=== PATIENT | female | born 1975 | race African-American/Black ===

== ENCOUNTER 2019-11-16 14:10 | Outpatient (CLI) | payer OTHER, SELFPAY ==
--- NOTE | 2019-11-16 14:16 | ECG_ITS ---
Measurements Intervals [place] Rate: 55 P: 41 RI: 156 QRS: 7 QRSD: 70 T: 15 QT: 418 QTc: 400 Interpretive Statements SINUS BRADYCARDIA DELAYED PRECORDIAL R/S TRANSITION BASELINE ARTIFACT- I, III, AVL, AVF BORDERLINE ECG Electronically Signed On 11-16-2019 14:32:49 CDT by Joseph Mack D.O.
[2019-11-16 15:18] LABS: Blood Urea Nitrogen 15 mg/dL (7-17); Calcium 9.2 mg/dL (8.4-10.2); Carbon Dioxide 29 mmol/L (22-30); Chloride 100 mmol/L (98-107); Estimated Glomerular Filt Rate > 60; Glucose 89 mg/dL (65-105); Potassium 3.7 mmol/L (3.4-5.0); Sodium 138 mmol/L (137-145)
== END 2019-11-16 14:11 | disposition home or self-care (01) ==
LOC: ANHSURGERY 14:14
PROVIDERS: Anesthesiology; Visit Provider Obstetrics & Gynecology
DX: Z01.818 Encounter for other preprocedural examination (principal); Z51.81 Encounter for therapeutic drug level monitoring; I10 Essential (primary) hypertension
CPT/HCPCS: 36415; 80048; 93005

== ENCOUNTER 2019-11-23 01:52 | Outpatient (CLI) | payer OTHER, SELFPAY ==
[2019-11-23 18:39] LABS: SARS-CoV-2 RNA PCR Negative
== END 2019-11-23 01:53 | disposition home or self-care (01) ==
LOC: ANHCOVIDDT 01:53
PROVIDERS: Visit Provider Obstetrics & Gynecology
DX: Z01.812 Encounter for preprocedural laboratory examination (principal); Z11.59 Encounter for screening for other viral diseases
CPT/HCPCS: 87635; C9803; U0003

== ENCOUNTER 2019-11-25 01:46 | Day surgery (SDC) | payer OTHER, SELFPAY ==
[2019-11-15 11:29] VITALS: BMI 29.0
--- NOTE | 2019-11-25 09:33 | PM.HPGS ---
History of Present Illness History of Present Illness Consent: Risks, benefits, and alternatives have been discussed and questions answered. Patient agrees to proceed with procedure. Chief complaint: Abnormal Uterine Bleeding Narrative: Jeanie Brown is a 44 year old female with heavy cycles and failed hormonal therapy. Review of Systems Constitutional: Constitutional: Reports fatigue PMFSH Past Medical History Medical History (Updated 11/25/19 @ 09:37 by Torsten Resendiz MD) Menorrhagia with irregular cycle Surgical History Surgical History (Updated 11/25/19 @ 09:36 by Torsten Resendiz MD) Tubal ligation status Social History Social History Smoking status: Never smoker Spiritual care concerns: No Meds Home Medications and Allergies Home Medications Medication Instructions Recorded Confirmed Type albuterol sulfate [ProAir HFA] 1 - 2 inh INHALATION QID PRN 11/15/19 11/15/19 History ascorbic acid (vitamin C) [Vitamin 500 mg PO DAILY 11/15/19 11/15/19 History C] azelastine 2 spray INTRANASAL BID 11/15/19 11/15/19 History biotin 1,000 mcg PO DAILY 11/15/19 11/15/19 History budesonide-formoterol [Symbicort] 2 puff INHALATION Q12H 11/15/19 11/15/19 History clobetasol 1 applic TOPICAL DIRECTED PRN 11/15/19 11/15/19 History fexofenadine [Mary Allergy] 180 mg PO DAILY 11/15/19 11/15/19 History hydrochlorothiazide 25 mg PO DAILY 11/15/19 11/15/19 History mometasone 1 spray INTRANASAL DAILY 11/15/19 11/15/19 History montelukast 10 mg PO HS 11/15/19 11/15/19 History multivitamin 1 tablet PO DAILY 11/15/19 11/15/19 History Allergies Allergy/AdvReac Type Severity Reaction Status Date / Time azithromycin Allergy Itching Verified 11/15/19 11:30 Exam Const: General: no acute distress Resp: Auscultation: clear to auscultation bilaterally Cardio: Rate: regular rate Rhythm: regular rhythm GI: GI Palp: Yes Soft to palpation : External Female Exam: normal external appearance Assessment and Plan Assessment and plan (1) Menorrhagia with irregular cycle: Code(s): N92.1 - Excessive and frequent menstruation with irregular cycle Status: Acute Assessment and Plan: Scheduled for a hysteroscopy with Daylin ablation. risk and benefits reviewed with patient in detail.
--- NOTE | 2019-11-25 12:15 | WPDANESEPPF ---
Anes - Initial Pre Proc Eval Procedure: Operation Date: 11/25/19 13:30 Proposed Procedures p Hysteroscopy, Dilation and Curettage, Daylin Endometrial Ablation - Torsten Resendiz MD Date/Time: 11/25/19 12:15 Surgeon: Torsten Resendiz MD Pre Op Diagnosis: Abnormal Uterine Bleeding Patient Data Age: 44 Gender: F Height: 5 ft 4 in Weight: 76.66 kg Allergies Allergy/AdvReac Type Severity Reaction Status Date / Time azithromycin Allergy Itching Verified 11/15/19 11:30 Home Medications Medication Instructions Recorded Confirmed Type albuterol sulfate [ProAir HFA] 1 - 2 inh INHALATION QID PRN 11/15/19 11/15/19 History ascorbic acid (vitamin C) [Vitamin 500 mg PO DAILY 11/15/19 11/15/19 History C] azelastine 2 spray INTRANASAL BID 11/15/19 11/15/19 History biotin 1,000 mcg PO DAILY 11/15/19 11/15/19 History budesonide-formoterol [Symbicort] 2 puff INHALATION Q12H 11/15/19 11/15/19 History clobetasol 1 applic TOPICAL DIRECTED PRN 11/15/19 11/15/19 History fexofenadine [Mary Allergy] 180 mg PO DAILY 11/15/19 11/15/19 History hydrochlorothiazide 25 mg PO DAILY 11/15/19 11/15/19 History mometasone 1 spray INTRANASAL DAILY 11/15/19 11/15/19 History montelukast 10 mg PO HS 11/15/19 11/15/19 History multivitamin 1 tablet PO DAILY 11/15/19 11/15/19 History Patient hx anesthesia problems: none Family hx anesthesia problems: none PMFSH Past Medical History Medical History Asthma Hypertension Menorrhagia with irregular cycle ANABELL (obstructive sleep apnea) Surgical History Surgical History Tubal ligation status Social History Social History Smoking status: Never smoker Spiritual care concerns: No Anes - Eval Final PreProcedure Day of Procedure 11/25/19 12:15 Patient weight: overweight Heart: regular rate and rhythm Lungs: clear to auscultation Airway: Mallampati scale class II Neurological: alert and oriented Last oral intake: >/= 8 hours ASA classification: III Emergent: no Anesthetic plan: proceed Anesthesia type and monitoring: general GIVS and standard monitoring Informed Consent: The patient's anesthetic plan and its attendant risks and benefits were discussed with the patient/family/POA. Questions were solicited and answers provided to the satisfaction of the patient/family/POA.
[2019-11-25] MEDS: ACETAMINOPHEN 500 MG TABLET 1000 MG PO (12:17)
[2019-11-25] MEDS: LACTATED RINGERS 1,000 ML 30 ML IV CONT (12:25)
[2019-11-25 12:43] VITALS: BP 130/77; PULSE 54; TEMP 36.4; O2SAT 100
--- NOTE | 2019-11-25 13:54 | SUR.OPER ---
300ml ns in, 300ml ns out
--- NOTE | 2019-11-25 13:58 | PM.OP ---
Procedure Note - Brief Procedure Note - Brief Date of procedure: 11/25/19 Pre-op diagnosis: Abnormal Uterine Bleeding Post-op diagnosis: same Procedure performed: hysteroscopy with yolis ablation Anesthesia: MAC and local Surgeon: Torsten Resendiz MD Estimated blood loss (mL): 10 Drains: No Packing: No Pathology: none sent Complications: None Condition: stable Disposition: observation Findings: normal uterine cavity
[2019-11-25 14:03] VITALS: BP 121/72; PULSE 95; RESP 14; O2SAT 96
[2019-11-25 14:30] VITALS: BP 143/91; PULSE 64; RESP 16
[2019-11-25 15:00] VITALS: BP 164/92; PULSE 62; RESP 18
[2019-11-25 15:30] VITALS: BP 154/77; PULSE 52; RESP 16
--- NOTE | 2019-11-25 18:13 | SUR.PHASEII ---
1403; PT INTO OPR PER STRETCHER. DROWSY, DENIES PAIN. ABDOMEN SOFT. PT ASKING ABOUT NOSE RING. NO NOSE RING PRESENT. 1430; PT SITTING IN RECLINER. C/O CRAMPING PAIN 10/11. 1443; OXYCODONE GIVEN PO. 1515; PT AWAKE AND ALERT. STATES PAIN IMPROVED AND MODERATE AND TOLERABLE. ABDOMEN REMAINS SOFT. 1530; PT STATES SHE IS READY TO GO HOME. MEETS DISCHARGE CRITERIA.
--- NOTE | 2019-11-26 10:19 | OP_ITS ---
DATE OF PROCEDURE: 11/25/2019 PREOPERATIVE DIAGNOSES: Abnormal uterine bleeding, menorrhagia, fibroid. POSTOPERATIVE DIAGNOSES: Abnormal uterine bleeding, menorrhagia, fibroid. PROCEDURE PERFORMED: Hysteroscopy with Daylin ablation. ANESTHESIA: MAC with paracervical block. FINDINGS: Grossly normal uterine cavity. DESCRIPTION OF PROCEDURE: The patient was taken to the operating room, IV running, prepared and draped in the normal sterile fashion, placed in the lithotomy position. Archbold speculum was placed into the vagina. Anterior lip of the cervix grasped with a single-tooth tenaculum. Cervix was injected at the 2 and 10 o'clock position with 1% lidocaine. The uterus was sounded to an 8. Cervical length was noted to be 10.5 cm, uterine cavity was 4 cm. Hysteroscope was removed. Daylin device was inserted. Daylin device cavity activated and pass. ablation was done for two minutes and device was removed. Hysteroscope was reintroduced showing an ablated cavity. Hysteroscope was removed. Tenaculum site noted to be hemostatic. Archbold speculum completely removed. Sponge, lap, and needle counts were correct x2. D I MT: Niru LAWSON
== END 2019-11-25 16:00 | disposition home or self-care (01) ==
PROVIDERS: PCP Internal Medicine; Visit Provider Obstetrics & Gynecology
PROC: 0U5B8ZZ Destruction of Endometrium, Via Natural or Artificial Opening Endoscopic (ICD-10-PCS; CPT 58563; principal; 2019-11-25 13:30)
DX: N93.9 Abnormal uterine and vaginal bleeding, unspecified (principal); N92.0 Excessive and frequent menstruation with regular cycle; D25.9 Leiomyoma of uterus, unspecified; Z98.51 Tubal ligation status; I10 Essential (primary) hypertension; J45.909 Unspecified asthma, uncomplicated; G47.33 Obstructive sleep apnea (adult) (pediatric); E66.9 Obesity, unspecified; Z68.29 Body mass index [BMI] 29.0-29.9, adult; Z79.899 Other long term (current) drug therapy
CPT/HCPCS: 58563; A9270; J1100; J2250; J2405; J2704; J3010; J7120

== ENCOUNTER 2020-04-05 14:53 | Emergency (ER) | payer BC, SELFPAY ==
--- NOTE | ~2020-04-05 | US_ITS ---
EXAMINATION: US pelvic complete w TV DATE: 04/05/2020 15:51 INDICATION: Right pelvic pain TECHNIQUE: Multiple transabdominal and endovaginal sonographic images of the pelvis were obtained. COMPARISON: None. FINDINGS: The anteverted uterus measures 8.7 x 4.9 x 4.9 cm. The endometrial complex measures 12 mm in thickne ss. 2.1 x 1.4 x 1.1 cm hypoechoic fibroid at the posterior fundus. The right ovary measures 3.7 x 2.0 x 1.9 cm. And contains a simple appearing anechoic 2.2 cm cyst/follicle. Vascular flow is identified in the left ovary on color Doppler. The left ovary is not visualized. There is no free fluid in the pelvis. IMPRESSION: 1. 2.1 cm uterine fibroid. 2. 2.2 cm simple anechoic cyst/follicle at the right ovary. Reviewed, dictated and finalized at location A. S TIE TURNER
--- NOTE | ~2020-04-05 | CT_ITS ---
EXAMINATION: CT abdomen pelvis w con DATE: 04/05/2020 16:58 INDICATION: Right lower quadrant abdominal pain. TECHNIQUE: Computed tomography (CT) of the abdomen and pelvis was performed with 100 mL Omnipaque 350 intravenous contrast. Automated exposure control and iterative reconstruction technique were employe d. The dose-length product was 492.27 mGy-cm. COMPARISON: CT abdomen and pelvis 05/07/10 FINDINGS: The visualized portions of the lung bases demonstrate mild atelectasis. No pleural effusion . The heart size is normal. No pericardial effusion. The liver, gallbladder, spleen, pancreas, adrena l glands, and kidneys are normal. There are no dilated loops of bowel. The appendix is normal. There are no pathologically enlarged lymph nodes. There is no free intraperitoneal fluid. There is a 1.8 cm dominant follicle in right ovary. There is mild thoracolumbar spondylosis. IMPRESSION: 1. No etiology for the patient's symptoms. Reviewed, dictated and finalized at location A. [employer]
[2020-04-05 14:59] VITALS: BP 139/75; PULSE 80; RESP 16; TEMP 36.3; O2SAT 99
--- NOTE | 2020-04-05 15:19 | ED.ABDPAIN ---
HPI - Abdominal Pain General Chief Complaint: Abdominal Pain Stated Complaint: RLQ abd pain Time Seen by Provider: 04/05/20 15:06 Source: patient Mode of arrival: ambulatory Limitations: no limitations History of Present Illness HPI narrative: This is a 44-year-old female that presents the emergency department for intermittent right lower quadrant abdominal/pelvic pain since this afternoon. Reports the pain feels like a pressure. Reports she has history of ovarian cysts and this feels similar. Reports she took an anti-inflammatory with some relief. Denies fever, nausea, vomiting, dysuria, or hematuria. Related Data Home Medications Medication Instructions Recorded Confirmed albuterol sulfate [ProAir HFA] 1 - 2 inh INHALATION QID PRN 11/15/19 11/15/19 ascorbic acid (vitamin C) [Vitamin 500 mg PO DAILY 11/15/19 11/15/19 C] azelastine 2 spray INTRANASAL BID 11/15/19 11/15/19 biotin 1,000 mcg PO DAILY 11/15/19 11/15/19 budesonide-formoterol [Symbicort] 2 puff INHALATION Q12H 11/15/19 11/25/19 clobetasol 1 applic TOPICAL DIRECTED PRN 11/15/19 11/15/19 fexofenadine [Mary Allergy] 180 mg PO DAILY 11/15/19 11/15/19 hydrochlorothiazide 25 mg PO DAILY 11/15/19 11/15/19 mometasone 1 spray INTRANASAL DAILY 11/15/19 11/15/19 montelukast 10 mg PO HS 11/15/19 11/15/19 multivitamin 1 tablet PO DAILY 11/15/19 11/15/19 Allergies Allergy/AdvReac Type Severity Reaction Status Date / Time azithromycin Allergy Itching Verified 11/15/19 11:30 Review of Systems Review of Systems: Narrative: CONSTITUTIONAL: Denies fever GASTROINTESTINAL: Reports abdominal pain. Denies nausea, vomiting GENITOURINARY: Denies dysuria or hematuria. All systems reviewed & are unremarkable except as noted in HPI and below PMFSH Past Medical History Medical History (Updated 04/05/20 @ 17:45 by CRYSTAL RuggieroC) Asthma Hypertension Menorrhagia with irregular cycle ANABELL (obstructive sleep apnea) Surgical History Surgical History Tubal ligation status Social History Social History Smoking status: Never smoker Gender identity (if verbalized by the patient): Female Spiritual care concerns: No Exam Narrative: Exam Narrative: GENERAL: Well-appearing, well-nourished, and in no acute distress. HEAD: Normocephalic, atraumatic. EYES: EOMI. CHEST: Clear to auscultation. No respiratory distress. No wheezes rales or rhonchi HEART: Regular rate and rhythm. No murmur heard. Normal peripheral pulses. ABDOMEN: Soft, nondistended, normal active bowel sounds. Tender to palpation of the right lower quadrant, without guarding. No CVA tenderness EXTREMITIES: Normal range of motion. No edema. SKIN: Warm, dry, no rash. NEURO: No focal deficits. Alert and oriented x3. PSYCH: Normal mood and affect Course Vital Signs Vital signs: Vital Signs Temperature 97.3 F L 04/05/20 14:59 Pulse Rate 80 04/05/20 14:59 Respiratory Rate 16 04/05/20 14:59 Blood Pressure 139/75 04/05/20 14:59 Pulse Oximetry 99 04/05/20 14:59 Temperature 97.3 F L 04/05/20 14:59 Pulse Rate 80 04/05/20 14:59 Respiratory Rate 16 04/05/20 14:59 Blood Pressure 111/72 04/05/20 16:46 Pulse Oximetry 99 04/05/20 16:45 MDM - Abdominal Pain MDM Narrative Medical decision making narrative: Patient presents to the emergency department for right sided lower abdominal/pelvic pain. She is afebrile and nontoxic-appearing. CBC with mild leukocytosis to 12.9. Metabolic panel significant for hypokalemia with potassium of 2.9. Patient given dose of potassium in the ED. UA is without evidence of infection. CT scan of the abdomen and pelvis is without acute findings. Pelvic ultrasound shows a uterine fibroid and a 2.2 cm simple cyst of the right ovary. Vascular flow is identified to the right ovary. No free fluid in the pelvis. Patient was upda
[2020-04-05 15:28] LABS: Basophils Percent Auto 0.3 % (0.2-1.2); Eosinophils Absolute Auto 0.1 K/mm3 (0-0.3); Eosinophils Percent Auto 0.9 % (0-4.4); Hematocrit 40.3 % (37.0-47.0); Hemoglobin 12.9 g/dL (12.0-15.0); Immature Granulocyte Absolute 0.04 K/mm3 (0.00-0.031); Immature Granulocyte Percent A 0.3 % (0-0.5); Lymphocytes Absolute Auto 1.99 K/mm3 (0.9-3.2); Lymphocytes Percent Auto 15.4 % (18.3-44.2); Mean Corpuscular Hemoglobin 27.8 pg (26-34); Mean Corpuscular Volume 86.9 fl (80-100); Mean Platelet Volume 8.5 fl (7.4-10.4); Monocytes Absolute Auto 0.7 K/mm3 (0.1-0.6); Monocytes Percent Auto 5.7 % (2.6-8.5); Neutrophils Percent Auto 77.4 % (45.5-73.1); Platelet Count Result 509 k/mm3 (150-375); Red Blood Count 4.64 M/mm3 (4.2-5.4); Red Cell Distribution Width 13.2 % (11.5-14.5); White Blood Count 12.9 K/mm3 (4.5-10.0)
[2020-04-05 15:32] LABS: Alanine Aminotransferase 16 U/L (4-35); Albumin Level 4.6 g/dL (3.5-5.1); Alkaline Phosphatase 108 U/L (38-126); Anion Gap 10 mmol/L (8-16); Aspartate Amino Transferase 33 U/L (14-36); Bilirubin,Total 0.6 mg/dL (0.2-1.3); Blood Urea Nitrogen 9 mg/dL (7-17); Calcium 9.5 mg/dL (8.4-10.2); Carbon Dioxide 33 mmol/L (22-30); Chloride 96 mmol/L (98-107); Estimated CRCL calculation 87 ml/min; Estimated Glomerular Filt Rate > 60; Glucose 113 mg/dL (65-105); Lipase 73 U/L (23-300); Potassium 2.9 mmol/L (3.4-5.0); Sodium 139 mmol/L (137-145)
[2020-04-05 15:36] LABS: Add Urine Microscopic? YES; Appearance Urine Cloudy (Clear); Bilirubin Urine Negative (Negative); Blood Urine 1+ (Negative); Color Urine Yellow (Yellow); Glucose Urine UA Negative (Negative); Ketones Urine Trace mg/dL (Negative); Leukocyte Esterase Ur Negative LEU/UL (Negative); Mucus Urine Heavy /lpf; Nitrate Urine Negative (Negative); Protein Urine 1+ mg/dL (Negative); Specific Grav Ur 1.025 (1.001-1.035); Squamous Epithelial Cell Urine Many /hpf (Few); Urobilinogen Urine Negative mg/dL (<2.0); WBC Urine 0-3 /hpf
[2020-04-05 15:41] LABS: INR 0.9; Prothrombin Time 12.9 Seconds (11.1-14.7)
[2020-04-05 15:42] LABS: Partial Thromboplastin Time 24.8 SECONDS (22.3-36.8)
[2020-04-05] MEDS: MORPHINE SULFATE (*CRX) 4 MG/ML INJ IV PUSH (15:58)
[2020-04-05] MEDS: ONDANSETRON INJ 4 MG/2 ML VIAL IV PUSH (15:58)
--- NOTE | 2020-04-05 16:08 | PC.NURSE ---
patient back from ultrasound. registration in room. medications given as ordered.
[2020-04-05 16:17] VITALS: O2SAT 100
[2020-04-05 16:30] VITALS: O2SAT 97
[2020-04-05 16:45] VITALS: O2SAT 99
[2020-04-05 16:46] VITALS: BP 111/72
[2020-04-05] MEDS: POTASSIUM CHLORIDE 20 MEQ TABLET 40 MEQ PO (17:34)
--- NOTE | 2020-04-05 17:52 | PC.NURSE ---
resting on stretcher. talking on cell phone. feels better. DC is started. SL removed. waiting for paperwork. .
== END 2020-04-05 18:10 | disposition home or self-care (01) ==
PROVIDERS: Physician Assistant; Emergency Provider Emergency Medicine
DX: N83.201 Unspecified ovarian cyst, right side (principal); J45.909 Unspecified asthma, uncomplicated; I10 Essential (primary) hypertension; G47.30 Sleep apnea, unspecified
CPT/HCPCS: 36415; 74177; 76830; 76856; 80053; 81001; 83690; 85025; 85610; 85730; 96365; 96375; 99284; A9270; J0131; J2270; J2405; Q9967